=== PATIENT | male | born 1970 | race Caucasian/White ===

== ENCOUNTER 2016-11-22 11:20 | Emergency (ER) | payer SELFPAY ==
[2016-11-22 11:53] VITALS: BP 128/87
--- NOTE | 2016-11-22 12:43 | UC ---
Upper Extremity HPI - HPI Summary HPI Summary: 46 y/o male presents to the urgent care c/o RT #5 finger pain after it was slammed in a pocker game with a dealer chip 11/02/2016. He applied ice and has taking Tylenol to alleviate symptoms, but now it is interfering with his typing. He feels numbness and tingling over tip of the finger. Pain is 4/10 with movement. Pt denies fever. SOB, chest pain, N/V/D, - History of Current Complaint Chief Complaint: UCUpperExtremity Stated Complaint: FINGER INJURY Time Seen by Provider: 11/22/16 12:35 Hx Obtained From: Patient Onset/Duration: Sudden Onset, Lasting Weeks - 2 weeks, Still Present Severity Initially: Moderate Severity Currently: Moderate Pain Intensity: 4 - movement Pain Scale Used: 0-10 Numeric Location Of Pain: Is Discrete @ - RT #5 finger Character: Sharp Aggravating Factor(s): Movement, Lifting, Flexion Alleviating Factor(s): Ice, OTC Meds Associated Signs And Symptoms: Positive: Swelling - mild, Numbness/Tingling - on and off - Risk Factors Non-Orthopedic Risk Factor: Negative DVT Risk Factors: Negative Septic Arthritis Risk Factor: Negative - Allergies/Home Medications Allergies/Adverse Reactions: Allergies Allergy/AdvReac Type Severity Reaction Status Date / Time No Known Allergies Allergy Verified 11/22/16 11:53 PMH/Surg Hx/FS Hx/Imm Hx Previously Healthy: Yes - Pt denies PMHX - Surgical History Surgical History: Yes Surgery Procedure, Year, and Place: rt elbow - Family History Known Family History: Positive: Cardiac Disease, Hypertension, Diabetes - Social History Occupation: Employed Full-time Lives: With Family Alcohol Use: Rare Substance Use Type: None Smoking Status (MU): Never Smoked Tobacco Review of Systems Constitutional: Negative Skin: Negative Eyes: Negative ENT: Negative Respiratory: Negative Cardiovascular: Negative Gastrointestinal: Negative Genitourinary: Negative Motor: Negative Neurovascular: Negative Musculoskeletal: Other: - RT#5 finger pain s/p injury on 11/02/2016 Neurological: Numbness - RT #5 finger Psychological: Negative Is Patient Immunocompromised?: No All Other Systems Reviewed And Are Negative: Yes Physical Exam Triage Information Reviewed: Yes Appearance: Well-Appearing, No Pain Distress, Well-Nourished Vital Signs: Initial Vital Signs Temp 98.6 F 11/22/16 11:49 Pulse 74 11/22/16 11:49 Resp 18 11/22/16 11:49 BP 128/87 11/22/16 11:49 Pulse Ox 98 11/22/16 11:49 Vital Signs Reviewed: Yes Eye Exam: Normal Eyes: Positive: Conjunctiva Clear - PERRLA, EOMI ENT Exam: Normal ENT: Positive: Normal ENT inspection, Hearing grossly normal, Pharynx normal, TMs normal Dental Exam: Normal Neck exam: Normal Neck: Positive: Supple, Nontender, No Lymphadenopathy Respiratory Exam: Normal Respiratory: Positive: Chest non-tender, Lungs clear, Normal breath sounds, No respiratory distress Cardiovascular Exam: Normal Cardiovascular: Positive: RRR, No Murmur, Pulses Normal, Brisk Capillary Refill Abdominal Exam: Normal Abdomen Description: Positive: Nontender, No Organomegaly, Soft. Negative: CVA Tenderness (R), CVA Tenderness (L) Bowel Sounds: Positive: Present Musculoskeletal: Positive: Other: - RT #5 phalanx with mild swelling at th DIPJ nd tenderness to palpation, decrese ROM due to pain. Sensation mildly decrease at the tip of the phalanx. Positive pulses, capillary refill brisk, Upper Extremity Course/Dx - Course Course Of Treatment: 46 y/o male presents to the urgent care c/o RT #5 finger pain after it was slammed in a pocker game with a dealer chip 11/02/2016. He applied ice and has taking Tylenol to alleviate symptoms, but now it is interfering with his typing. He feels numbness and tingling over tip of the finger. Pain is 4/10 with movement. Pt denies fever. SOB, chest pain, N/V/D, Hx obtaiend. RT #5 finger X-ray ordered, Impression: Negative for any osseous or soft tissue abnormality. Pt Rx Ibuprofen PO to alleviate symptoms. Finger Immobilized with finger splint and body tape it. Pt advised RICE and f/u with Orthopedic or your PCP in 1 week is not improvement of symptoms for further evaluation and treatment. Pt understood and agreed and left the clinic ambulating.A&OX3 - Differential Dx/Diagnosis Differential Diagnosis/HQI/PQRI: Arthritis, Contusion, Fracture (Closed), Strain , Sprain Provider Diagnoses: 1- RT #5 phalanx pain s/p injury Discharge - Discharge Plan Condition: Stable Disposition: HOME Prescriptions: Ibuprofen TAB* [Motrin TAB* 800 MG] 800 mg PO Q6H #30 tab Patient Education Materials: Finger Sprain (ED) Forms: *Work Release Referrals: [facility] [place] [facility] [Outside] - 1 Week Golden Silvestre MD [Medical Doctor] - 1 Week Additional Instructions: 1-Please take medications as directed to alleviate pain and swelling. 2-Please apply ice, keep your finger immobilized with the splint.Continue applying ice 3- Please f/u with Orthopedic or your PCP in 1 week is not improvement of symptoms for further evaluation and treatment.
--- NOTE | 2016-11-22 13:09 | RAD ---
HISTORY: Right fifth digit injury COMPARISONS: None VIEWS: 3, Frontal, lateral, and oblique views of the fifth digit of the right hand FINDINGS: BONE DENSITY: Normal. BONES: There is no displaced fracture. JOINTS: There is no arthropathy. ALIGNMENT: There is no dislocation. SOFT TISSUES: Unremarkable. OTHER FINDINGS: None. IMPRESSION: NO ACUTE OSSEOUS INJURY. IF SYMPTOMS PERSIST, RECOMMEND REPEAT IMAGING.
== END 2016-11-22 13:40 | disposition home or self-care (01) ==
LOC: UCEAST 11:20
DX: M79.644 Pain in right finger(s) (principal); M79.89 Other specified soft tissue disorders
CPT/HCPCS: 73140; 99202; G0463